=== PATIENT | male | born 1975 | race Caucasian/White ===

== ENCOUNTER 2019-06-28 07:39 | Inpatient (IN) | payer MEDICAID ==
[~2019-06-28] VITALS: Ht 170.2 cm; Wt 108.5 kg
--- NOTE | 2019-06-28 08:01 | NUR ---
12 LEAD EKG COMPLETED IN TRIAGE. ISOLATION PRECAUTIONS MAINTAINED. PT. WAS MOVED TO ROOM 26. REPORT GIVEN TO THE RECEIVING RN REJI WHO WAS UPDATED ON THE PT.'S VITAL SIGNS AND SPO2 LEVEL. PT. IS UNDRESSING AND PUTTING A GOWN ON.
[2019-06-28] MEDS ORDERED: ONDANSETRON ODT 4 MG ONE (08:19)
[2019-06-28] MEDS ORDERED: ONDANSETRON ODT 4 MG PO PRN (08:30)
[2019-06-28 08:58] LABS: RAPID INFLUENZA A Negative (Negative); RAPID INFLUENZA B Negative (Negative)
[2019-06-28] MEDS ORDERED: PLEASE ENTER ALLERGIES MC SCH (09:00)
--- NOTE | 2019-06-28 09:40 | NUR ---
IV STARTED, LABS AND CULTURES DRAWN AND SENT. PT PROVIDED WITH WATER PER REQUEST. DENIES ANY FURTHER NEEDS OR CONCERNS, CALL LIGHT IN REACH.
[2019-06-28 09:49] LABS: BASOPHILS # (AUTO) 0.03 x10^3/uL (0-0.1); BASOPHILS % (AUTO) 1 % (0-1); EOSINOPHILS # (AUTO) 0.04 x10^3/uL (0-0.4); EOSINOPHILS % (AUTO) 1 % (1-7); LYMPHOCYTES # (AUTO) 1.97 x10^3/uL (1-3.4); LYMPHOCYTES % (AUTO) 36 % (22-44); MD NO; MEAN CORPUSCULAR HEMOGLOBIN 30.6 pg (27.5-34.5); MEAN CORPUSCULAR HGB CONC 33.7 g/dL (33.2-36.2); MEAN CORPUSCULAR VOLUME 90.8 fL (81-97); MEAN PLATELET VOLUME 8.5 fL (7.4-10.4); MONOCYTES # (AUTO) 1.04 x10^3/uL (0.2-0.8); MONOCYTES % (AUTO) 19 % (2-9); NEUTROPHILS # (AUTO) 2.34 x10^3/uL (1.8-6.8); NEUTROPHILS % (AUTO) 43 % (42-75); PLATELET COUNT 326 x10^3/uL (130-400); RED BLOOD COUNT 5.19 x10^6/uL (4.38-5.82); RED CELL DISTRIBUTION WIDTH 15.2 % (9.4-14.8)
[2019-06-28 09:56] LABS: ALBUMIN 3.6 g/dL (3.4-5.0); ANION GAP 7 mmol/L (5-15); CALCIUM 8.3 mg/dL (8.5-10.1); CHLORIDE 103 mmol/L (98-107); CREATININE 0.67 mg/dL (0.7-1.3)
[2019-06-28] MEDS ORDERED: SODIUM CHLORIDE 0.9% 1,000 ML IV ONE (10:00)
[2019-06-28] MEDS ORDERED: ALBUTEROL/IPRATROPIUM 2.5MG/0.5MG, 3 ML NPPB ONE (12:30)
[2019-06-28] MEDS: NS + 20MEQ KCL 1,000 ML IV SCH ×2 (13:03→20:48)
[2019-06-28] MEDS ORDERED: ONDANSETRON 2MG/ML, 2ML IVPush PRN (13:30)
[2019-06-28] MEDS ORDERED: LABETALOL 5MG/ML, 20ML IVPush PRN (13:30)
[2019-06-28] MEDS: NICOTINE 14MG/24 HR PATCH.TD24 TD SCH ×2 (13:30→20:52)
[2019-06-28] MEDS ORDERED: hydrALAzine 20 MG/ML, 1ML IVPush PRN (13:30)
[2019-06-28] MEDS ORDERED: HEPARIN 5,000 UNITS/ML, 1ML SQ SCH (13:30)
[2019-06-28] MEDS ORDERED: OMNIPAQUE 350 MG/ML, 100ML BOTTLE ONE (13:34)
--- NOTE | 2019-06-28 13:45 | NUR ---
PT FAMILY MEMBER CALLED WITH QUESTIONS ON PT STATUS. PT PROVIDED WITH CELL PHONE CERTIFIED LEGAL INVESTIGATOR IN ROOM SO THAT HE CAN CALL FAMILY HIMSELF. PT DENIES ANY FURTHER NEEDS OR CONCERNS AT THIS TIME. CALL LIGHT IN REACH.
[2019-06-28 14:26] LABS: INTERNATIONAL NORMALIZED RATIO 1.32 (0.93-1.1)
[2019-06-28] MEDS ORDERED: ONDANSETRON 2MG/ML, 2ML ONE ×2 (14:58→18:07)
[2019-06-28] MEDS ORDERED: ONDANSETRON 2MG/ML, 2ML IVPush ONE (15:00)
[2019-06-28] MEDS ORDERED: CEFTRIAXONE PMX 1GM/50ML 50 ML ONE (15:20)
[2019-06-28] MEDS ORDERED: NS + 20MEQ KCL 1,000 ML IV ONE ×2 (15:20→20:18)
[2019-06-28] MEDS: CEFTRIAXONE PMX 1GM/50ML 50 ML IV SCH (15:38)
--- NOTE | 2019-06-28 15:42 | NUR ---
CUMMULATIVE NOTE: APPROXIMATELY 1500 - PT VOMITTED LARGE AMOUNT OF UNDIGESTED FOOD ONTO FLOOR IN ROOM. ROOM CLEANED, PT'S CONDITION DISCUSSED C ED MD BRAX[place]. CHEMO ORDERED AND ADMINISTERED PER ED MD ORDER. PT REQUESTING PHONE TO CALL FAMILY. APPROXIMATELY 1515: RETURNED TO PT'S ROOM. PT OUT OF ROOM AT THIS TIME, IN PUBLIC RESTROOM IN ED, DESPITE PREVIOUS INSTRUCTION. UPON RETURN TO PT'S ROOM, PT RE-INSTRUCTED TO REMAIN IN ROOM AND THAT OTHER METHODS ARE AVAILABLE TO ALLOW HIM TO VOID IN THE FUTURE. CALL LIGHT W/IN REACH. PT INSTRUCTED ON USE. PT NON-COMPLIANT C ATTEMPTS TO CONTIUOUSLY MONITOR SPO2. PT HAS REMOVED SPO2 MONITOR FROM FINGER DESPITE SEVERAL CONVERSATIONS C RN'S EDUCATING HIM TO THE IMPORTANCE OF THIS READING - SAME INTERACTION FOR MONITORING OF BP. 1540 - PT RESTING IN [facility] AT THIS TIME, EYES CLOSED. MEDICATIONS INITIATED ORDERED ON EMAR. PT PROVIDED WITH A WHITE PHONE TO ALLOW FOR PHONE CALL. UNABLE TO COMPLETE AT THIS TIME PT IS ATTEMPTING TO DIAL LONG DISTANCE AND THIS PHONE IS NOT CAPABLE OF THIS FUNCTION. THIS RN OFFERED TO CALL FAMILY/FRIEND FROM THE RN STATION ON PT'S BEHALF TO UPDATE THEM, PT DECLINED AT THIS TIME. 1542 - REPORT BACK TO PT'S PRIMARY RN, REJI. PT RESTING IN [place]. EYES CLOSED. RESPS UNLABORED, CHEST RISE AND FALL VISUALIZED. NAUSEA/VOMITING HAS SUBSIDED.
[2019-06-28] MEDS: GUAIFENESIN 200 MG TABLET PO SCH ×2 (16:00→21:27)
[2019-06-28] MEDS ORDERED: GUAIFENESIN 200 MG TABLET ONE (16:57)
[2019-06-28] MEDS: DOXYCYCLINE 100 MG in DEXTROSE 5% 250 ML IV SCH (17:26)
--- NOTE | 2019-06-28 17:26 | NUR ---
Hugo [phone]
[2019-06-28] MEDS ORDERED: ACETAMINOPHEN 325 MG TABLET ONE (18:08)
[2019-06-28] MEDS: ACETAMINOPHEN 325 MG TABLET PO PRN ×2 (18:13→23:11)
--- NOTE | 2019-06-28 19:11 | NUR ---
REPORT FROM REJI BYNUM.
--- NOTE | 2019-06-28 19:18 | NUR ---
PT SLEEPIN ON GURNEY, EVEN AND UNLABORED RESPIRATIONS, NO ACUTE DISTRESS NOTED.
--- NOTE | 2019-06-28 20:05 | NUR ---
PT C/O NAUSEA AND VOMITING STATES ZOFRAN HAS NOT BEEN HELPING, PT HAS ALSO BEEN EATING ALL DAY, PT ALSO REPORTS FEELING ANXIOUS. UPDATED HOSPITALIST, AND CLARIFIED HEPRARIN DRIP PROTOCOL ORDER. PER DECLAN GIVE ONE TIME ORDER OF ATIVAN 0.5MG IV. ORDER PLACED AND VERIFIED.
[2019-06-28] MEDS ORDERED: HEPARIN 5,000 UNITS/ML, 1ML ONE (20:17)
[2019-06-28] MEDS ORDERED: HEPARIN 25,000 UNITS/250ML PMX 250 ML ONE (20:18)
[2019-06-28] MEDS ORDERED: LORazepam 2 MG/ML, 1ML ONE (20:18)
[2019-06-28] MEDS ORDERED: LORazepam 2 MG/ML, 1ML IVPush ONE (20:30)
[2019-06-28] MEDS ORDERED: HEPARIN 5,000 UNITS/ML, 1ML IV ONE (20:30)
[2019-06-28] MEDS: HEPARIN 25,000 UNITS/250ML PMX 250 ML IV PRN (20:37)
[2019-06-28] MEDS ORDERED: NICOTINE 14MG/24 HR PATCH.TD24 ONE (20:41)
--- NOTE | 2019-06-28 21:23 | NUR ---
REPORT GIVEN TO MICHAEL BYNUM.
[2019-06-28 22:30] VITALS: BP 140/91
[2019-06-28] MEDS ORDERED: TEMAZEPAM 15 MG CAPSULE PO PRN (23:00)
[2019-06-29 02:45] VITALS: BP 160/100
[2019-06-29 03:14] LABS: BASOPHILS # (AUTO) 0.04 x10^3/uL (0-0.1); BASOPHILS % (AUTO) 1 % (0-1); EOSINOPHILS # (AUTO) 0.03 x10^3/uL (0-0.4); EOSINOPHILS % (AUTO) 1 % (1-7); LYMPHOCYTES # (AUTO) 2.21 x10^3/uL (1-3.4); LYMPHOCYTES % (AUTO) 40 % (22-44); MD NO; MEAN CORPUSCULAR HEMOGLOBIN 30.3 pg (27.5-34.5); MEAN CORPUSCULAR HGB CONC 33.8 g/dL (33.2-36.2); MEAN CORPUSCULAR VOLUME 89.7 fL (81-97); MEAN PLATELET VOLUME 8.9 fL (7.4-10.4); MONOCYTES # (AUTO) 0.98 x10^3/uL (0.2-0.8); MONOCYTES % (AUTO) 18 % (2-9); NEUTROPHILS # (AUTO) 2.22 x10^3/uL (1.8-6.8); NEUTROPHILS % (AUTO) 41 % (42-75); PLATELET COUNT 254 x10^3/uL (130-400); RED BLOOD COUNT 4.41 x10^6/uL (4.38-5.82); RED CELL DISTRIBUTION WIDTH 14.6 % (9.4-14.8)
[2019-06-29 03:26] LABS: ALANINE AMINOTRANSFERASE 127 U/L (12-78); ALBUMIN 2.9 g/dL (3.4-5.0); ANION GAP 9 mmol/L (5-15); CALCIUM 8.1 mg/dL (8.5-10.1); CHLORIDE 103 mmol/L (98-107); CREATININE 0.57 mg/dL (0.7-1.3)
[2019-06-29 03:28] LABS: ALKALINE PHOSPHATASE 102 U/L (45-117); BILIRUBIN,TOTAL 0.6 mg/dL (0.2-1.0); TOTAL PROTEIN 5.9 g/dL (6.4-8.2)
[2019-06-29] MEDS: HEPARIN 5,000 UNITS/ML, 1ML IV PRN ×3 (03:43→18:08)
[2019-06-29] MEDS: DOXYCYCLINE 100 MG in DEXTROSE 5% 250 ML IV SCH ×2 (05:22→17:04)
[2019-06-29] MEDS: GUAIFENESIN 200 MG TABLET PO SCH ×4 (05:22→20:57)
[2019-06-29] MEDS: NS + 20MEQ KCL 1,000 ML IV SCH ×2 (05:23→15:54)
[2019-06-29 05:30] VITALS: BP 147/96
[2019-06-29] MEDS ORDERED: LISINOPRIL 10 MG TABLET ONE (10:52)
[2019-06-29] MEDS ORDERED: LORazepam 1MG TABLET ONE (10:53)
[2019-06-29 11:00] VITALS: BP 170/109
[2019-06-29] MEDS ORDERED: VENLAFAXINE XR 37.5MG CAP.ER.24H PO SCH (11:00)
[2019-06-29] MEDS: ACETAMINOPHEN 325 MG TABLET PO PRN ×2 (11:07→17:04)
[2019-06-29] MEDS: LORazepam 1MG TABLET PO PRN ×2 (11:07→18:43)
[2019-06-29] MEDS: LISINOPRIL 10 MG TABLET PO SCH (11:07)
[2019-06-29] MEDS: VENLAFAXINE 75 MG CAP ER PO SCH (11:43)
[2019-06-29 12:20] VITALS: BP 144/78
[2019-06-29] MEDS: CEFTRIAXONE PMX 1GM/50ML 50 ML IV SCH (13:30)
[2019-06-29] MEDS: HEPARIN 25,000 UNITS/250ML PMX 250 ML IV PRN (18:11)
[2019-06-29 19:39] VITALS: BP 157/96
[2019-06-29] MEDS ORDERED: AMITRIPTYLINE 25 MG TABLET PO SCH (21:00)
[2019-06-29] MEDS: NICOTINE 14MG/24 HR PATCH.TD24 TD SCH (21:03)
[2019-06-30] MEDS: NS + 20MEQ KCL 1,000 ML IV SCH (00:20)
[2019-06-30] MEDS: HEPARIN 5,000 UNITS/ML, 1ML IV PRN (01:09)
[2019-06-30 02:00] VITALS: BP 137/79
[2019-06-30] MEDS: GUAIFENESIN 200 MG TABLET PO SCH ×2 (05:33→11:00)
[2019-06-30] MEDS: DOXYCYCLINE 100 MG in DEXTROSE 5% 250 ML IV SCH (05:33)
[2019-06-30 07:49] LABS: BASOPHILS # (AUTO) 0.05 x10^3/uL (0-0.1); BASOPHILS % (AUTO) 1 % (0-1); EOSINOPHILS # (AUTO) 0.18 x10^3/uL (0-0.4); EOSINOPHILS % (AUTO) 4 % (1-7); LYMPHOCYTES # (AUTO) 1.76 x10^3/uL (1-3.4); LYMPHOCYTES % (AUTO) 40 % (22-44); MD NO; MEAN CORPUSCULAR HEMOGLOBIN 30.2 pg (27.5-34.5); MEAN CORPUSCULAR HGB CONC 33.3 g/dL (33.2-36.2); MEAN CORPUSCULAR VOLUME 90.6 fL (81-97); MEAN PLATELET VOLUME 9.1 fL (7.4-10.4); MONOCYTES % (AUTO) 16 % (2-9); NEUTROPHILS # (AUTO) 1.77 x10^3/uL (1.8-6.8); NEUTROPHILS % (AUTO) 40 % (42-75); PLATELET COUNT 232 x10^3/uL (130-400); RED BLOOD COUNT 4.38 x10^6/uL (4.38-5.82); RED CELL DISTRIBUTION WIDTH 14.7 % (9.4-14.8)
[2019-06-30 07:56] LABS: ANION GAP 5 mmol/L (5-15); CALCIUM 8.8 mg/dL (8.5-10.1); CHLORIDE 105 mmol/L (98-107); CREATININE 0.54 mg/dL (0.7-1.3)
[2019-06-30 08:36] VITALS: BP 143/91
[2019-06-30] MEDS: VENLAFAXINE 75 MG CAP ER PO SCH (09:00)
[2019-06-30] MEDS ORDERED: VENLAFAXINE 75 MG CAP ER PO SCH (09:00)
[2019-06-30] MEDS: LISINOPRIL 10 MG TABLET PO SCH (09:06)
[2019-06-30] MEDS: LORazepam 1MG TABLET PO PRN (09:11)
[2019-06-30] MEDS ORDERED: APIX5TAB PO (11:03)
[2019-06-30] MEDS: CEFTRIAXONE PMX 1GM/50ML 50 ML IV SCH (13:30)
== END 2019-06-30 13:56 | disposition home or self-care (01) | DRG 145 ==
LOC: ED 08:52 → EDIP 12:29 → 3WST 22:15 → 3N 06-29 18:56
PROVIDERS: ADMIT Internal Medicine; ATTEND Hospitalist
DX: J20.9 Acute bronchitis, unspecified (principal); I26.99 Other pulmonary embolism without acute cor pulmonale; J96.01 Acute respiratory failure with hypoxia; I10 Essential (primary) hypertension; Z72.0 Tobacco use
CPT/HCPCS: 36415; 71045; 71275; 80048; 80053; 82040; 84145; 85025; 85379; 85520; 85610; 85730; 87070; 87081; 87205; 87400; 87486; 87581; 87633; 87798; 87880; 93005; 93306; 93970; 94640; 96374; 96375; G0378; J0696; J1644; J2405; J3480; J7060; Q0162; Q9967; J0360; J2060; J7030; J7512